=== PATIENT | female | born 1990 | race Caucasian/White ===

== ENCOUNTER 2025-08-27 06:17 | Day surgery (SDC) | payer OTHER, SELFPAY | END 2025-08-27 11:43 | disposition home or self-care (01) | LOC: GI 06:17 | PROVIDERS: ATTENDING PHYSICIAN Internal Medicine; FAMILY PHYSICIAN Nurse Practitioner Family | DX: K22.81 Esophageal polyp (principal); K22.89 Other specified disease of esophagus; R12 Heartburn; Z98.890 Other specified postprocedural states; Z98.0 Intestinal bypass and anastomosis status | CPT/HCPCS: 43239; 88305 ==